=== PATIENT | male | born 1970 | race Caucasian/White ===

== ENCOUNTER 2016-11-07 07:34 | Emergency (ER) | payer MEDICARE ==
[~2016-11-07] VITALS: Ht 172.7 cm; Wt 62.8 kg
[~2016-11-07 07:34] MED LIST: HYDR-3533 PO; LEVO50TA4 PO; LISI-360 PO; WARF2TAB PO
[2016-11-07 07:42] VITALS: BP 134/84; PULSE 100; RESP 18; TEMP 98; O2SAT 99
[2016-11-07] MEDS ORDERED: LEVO50TA4 PO (07:54)
[2016-11-07] MEDS ORDERED: AMLO10TA2 PO (07:54)
[2016-11-07] MEDS ORDERED: LISI10TA3 PO (07:54)
[2016-11-07] MEDS ORDERED: WARF4TAB52 PO (07:54)
[2016-11-07] MEDS ORDERED: SODIUM CHLOR 0.9% 1000 ML INJ 1,000 ML IV SCH (08:12)
[2016-11-07] MEDS ORDERED: MORPHINE SULFATE 4 MG/ML INJ IV PUSH ONE (08:15)
[2016-11-07] MEDS ORDERED: SODIUM CHLORIDE 0.9% FLUSH 5 ML FLUSH IVF PRN (08:15)
[2016-11-07] MEDS ORDERED: ONDANSETRON HCL 4 MG/2 ML VIAL IVP ONE (08:15)
--- NOTE | 2016-11-07 08:25 | PD ---
HPI Chief Complaint: GI Complaint Time Seen by Provider: 08:05 Travel History International Travel<30 days: No Contact w/Intl Traveler<30days: No Traveled to known affect area: No History of Present Illness HPI Patient is a 46-year-old male who presents to emergency room with complaints of left-sided flank pain and left lower abdominal pain. Patient reports that all the symptoms began yesterday around noon, reports that he had been having intermittent left-sided pain and attributed it to muscle strain. Patient reports that he put heating pads on his left side of his abdomen and reports no relief of symptoms. Patient reports that symptoms have been constant this morning, patient concerned that he may have a kidney stone. Patient denies history of kidney stones in the past. Patient denies hematuria, denies dysuria , urinary urgency or frequency. Patient admits to feeling nausea but denies vomiting, patient denies constipation or diarrhea. Patient with no fevers or chills. PFSH Past Medical History Hx Anticoagulant Therapy: Yes (coumadin) Cardiovascular Problems: Yes (htn) Cerebrovascular Accident: Yes Hypertension: Yes Thyroid Disease: Yes Influenza Vaccination: Yes Past Surgical History Surgical History: No Previous Surgery Other Surgery: Yes (orthopedic surgery) Family History Family History: Negative Social History Alcohol Use: No Tobacco Use: No Substance Use: No Allergies-Medications (Allergen,Severity, Reaction): Coded Allergies: No Known Allergies (Unverified , 11/07/16) Reported Meds & Prescriptions Reported Meds & Active Scripts Active Ibuprofen 600 Mg Tab 600 Mg PO Q6H PRN Percocet (Oxycodone-Acetaminophen) 5-325 mg Tab 1 Tab PO Q6H PRN Flomax (Tamsulosin HCl) 0.4 Mg Cap 0.4 Mg PO HS Reported Warfarin 1 Mg Tab 1 Mg PO DAILY Amlodipine (Amlodipine Besylate) 10 Mg Tab 10 Mg PO HS Lisinopril 10 Mg Tab 10 Mg PO DAILY Levothyroxine (Levothyroxine Sodium) 50 Mcg Tab 50 Mcg PO DAILY Review of Systems General / Constitutional: No: Fever Eyes: No: Visual changes HENT: No: Headaches Cardiovascular: No: Chest Pain or Discomfort Respiratory: No: Shortness of Breath Gastrointestinal: Positive: Nausea, Abdominal Pain, No: Vomiting, Diarrhea, Hematemesis, Hematochezia, Constipation Genitourinary: No: Urgency, Frequency, Dysuria, Hematuria Musculoskeletal: No: Pain Skin: No Rash Neurologic: No: Weakness Psychiatric: No: Depression Endocrine: No: Polydipsia Hematologic/Lymphatic: No: Easy Bruising Physical Exam Narrative GENERAL: No acute distress, nontoxic SKIN: Warm and dry. HEAD: Atraumatic. Normocephalic. EYES: Pupils equal and round. No scleral icterus. No injection or drainage. ENT: No nasal bleeding or discharge. Mucous membranes pink and moist. NECK: Trachea midline. No JVD. CARDIOVASCULAR: Regular rate and rhythm. No murmur appreciated. RESPIRATORY: No accessory muscle use. Clear to auscultation. Breath sounds equal bilaterally. GASTROINTESTINAL: Abdomen soft, non-tender, nondistended. Patient with left- sided flank pain, patient does have some redness and irritation to his left lower abdomen - patient reports that he noticed this after he placed heating pad on his abdomen last night. There is no rebound or guarding on abdominal exam. Patient with no peritoneal signs. MUSCULOSKELETAL: No obvious deformities. No clubbing. No cyanosis. No edema. NEUROLOGICAL: Awake and alert. No obvious cranial nerve deficits. Motor grossly within normal limits. Normal speech. PSYCHIATRIC: Appropriate mood and affect; insight and judgment normal. Data Data Last Documented VS Vital Signs Date Time Temp Pulse Resp B/P Pulse Ox O2 Delivery O2 Flow Rate FiO2 11/07/16 09:03 86 18 130/92 97 Room Air 11/07/16 07:42 98.0 Orders Complete Blood Count With Diff (11/07/16 08:12) Comprehensive Metabolic Panel (11/07/16 08:12) Lipase (11/07/16 08:12) Prothrombin Time / Inr (Pt) (11/07/16 08:12) Act Partial Throm Time (Ptt) (11/07/16 08:12) Urinalysis - C+S If Indicated (11/07/16 08:12) Ct Abd/Pel W/O Iv Contrast (11/07/16 08:12) Iv Access Insert/Monitor (11/07/16 08:12) Morphine Inj (Morphine Inj) (11/07/16 08:15) Ondansetron Inj (Zofran Inj) (11/07/16 08:15) Sodium Chlor 0.9% 1000 Ml Inj (Ns 1000 M (11/07/16 08:12) Sodium Chloride 0.9% Flush (Ns Flush) (11/07/16 08:15) Strain Urine PRN (11/07/16 09:59) Labs Laboratory Tests Test 11/07/16 11/07/16 08:25 08:44 White Blood Count 11.7 TH/MM3 Red Blood Count 5.19 MIL/MM3 Hemoglobin 14.2 GM/DL Hematocrit 42.6 % Mean Corpuscular Volume 82.1 FL Mean Corpuscular Hemoglobin 27.3 PG Mean Corpuscular Hemoglobin 33.3 % Concent Red Cell Distribution Width 11.8 % Platelet Count 274 TH/MM3 Mean Platelet Volume 6.8 FL Neutrophils (%) (Auto) 87.8 % Lymphocytes (%) (Auto) 5.1 % Monocytes (%) (Auto) 6.2 % Eosinophils (%) (Auto) 0.2 % Basophils (%) (Auto) 0.7 % Neutrophils # (Auto) 10.3 TH/MM3 Lymphocytes # (Auto) 0.6 TH/MM3 Monocytes # (Auto) 0.7 TH/MM3 Eosinophils # (Auto) 0.0 TH/MM3 Basophils # (Auto) 0.1 TH/MM3 CBC Comment DIFF FINAL Differential Comment Prothrombin Time 19.4 SEC Prothromb Time International 1.7 RATIO Ratio Activated Partial 40.9 SEC Thromboplast Time Sodium Level 133 MEQ/L Potassium Level 3.7 MEQ/L Chloride Level 96 MEQ/L Carbon Dioxide Level 25.0 MEQ/L Anion Gap 12 MEQ/L Blood Urea Nitrogen 11 MG/DL Creatinine 1.20 MG/DL Estimat Glomerular Filtration 65 ML/MIN Rate Random Glucose 145 MG/DL Calcium Level 8.6 MG/DL Total Bilirubin 0.7 MG/DL Aspartate Amino Transf 51 U/L (AST/SGOT) Alanine Aminotransferase 129 U/L (ALT/SGPT) Alkaline Phosphatase 147 U/L Total Protein 7.7 GM/DL Albumin 3.6 GM/DL Lipase 117 U/L Urine Collection Type CLEAN CATCH Urine Color YELLOW Urine Turbidity CLEAR Urine pH 6.0 Urine Specific [place] 1.005 Urine Protein NEG mg/dL Urine Glucose (UA) NEG mg/dL Urine Ketones NEG mg/dL Urine Occult Blood LARGE Urine Nitrite NEG Urine Bilirubin NEG Urine Leukocyte Esterase NEG Urine RBC 15-19 /hpf Microscopic Urinalysis Comment CULT NOT INDICATED MDM Medical Decision Making Medical Screen Exam Complete: Yes Emergency Medical Condition: Yes Interpretation(s) Vital Signs Date Time Temp Pulse Resp B/P Pulse Ox O2 Delivery O2 Flow Rate FiO2 11/07/16 07:42 98.0 100 18 134/84 99 Differential Diagnosis Nephrolithiasis, UTI, pyelonephritis, colitis, muscle strain Narrative Course Patient is a 46-year-old male who presents to emergency room with complaints of left sided flank pain/abdominal pain which began around noon yesterday. Patient reports that symptoms have been intermittent yesterday but have been constant this morning. Patient concerned that he may have a kidney stone. Patient nontoxic on evaluation, patient does have left sided flank pain on evaluation. CBC, BMP, coags, UA and CT abdomen pelvis without IV contrast obtained for further evaluation symptoms. Will treat patient's pain with morphine, will also machine deburrer IV fluids at this time. CBC & BMP Diagram 11/07/16 08:25 Last Impressions Abdomen/Pelvis CT 11/07/16 0812 Signed Impressions: Service Date/Time: Saturday, November 07, 2016 08:48 - CONCLUSION: 3 mm distal left ureteral calculus with secondary hydronephrosis and hydroureter and Mickey Harris MD All labs and all studies reviewed with patient in detail. Patient with a 3 mm distal left renal calculus with hydronephrosis and hydroureter. Patient was given a urine strainer, instructed to strain his urine and catch kidney stone and bring this to his urology office appointment. Discussed with patient that he should make an appointment with urologist after he leaves emergency room today. Signs and symptoms of when to return to the emergency room reviewed with patient. Understands that if symptoms progress or worsen, he will need to return to emergency room immediately. Patient also understands that he should not drive while taking narcotic pain medications. Diagnosis Primary Impression: Kidney stone on left side Additional Impressions: Hydronephrosis Qualified Code: N13.2 - Hydronephrosis with urinary obstruction due to renal calculus Hydroureter Hyponatremia Transaminitis Hematuria Referrals: Hero Abraham MD Patient Instructions: General Instructions, Narcotic given in the ED Additional Instructions: Please provide patient with a copy of his labs and studies at discharge Please strain your urine, bring your kidney stones your doctor's office for further workup of your stone. Return to ER as needed Return to ER if symptoms progress or worsen Please do not drive while taking narcotic pain medications. Please call urologist as soon as possible for earliest follow-up Please call your primary care doctor for follow-up Med/Other Pt SpecificInfo: Prescription(s) given Scripts Ibuprofen 600 Mg [id number] Mg PO Q6H PRN (Pain/Inflammation) #40 TAB Ref 0 Prov:Aidee Garcia DO 11/07/16 Oxycodone-Acetaminophen (Percocet)5-325 mg Tab1 Tab PO Q6H PRN (PAIN) #15 TAB Ref 0 Prov:Aidee Garcia DO 11/07/16 Tamsulosin (Flomax)0.4 Mg Cap0.4 Mg PO HS #12 CAP Ref 0 Prov:Aidee Garcia DO 11/07/16 Disposition: 01 DISCHARGE HOME Condition: Stable Aidee Garcia DO Nov 07, 2016 08:25
[2016-11-07 08:30] LABS: AUTOMATED NEUTROPHIL # 10.3 TH/MM3 (1.8-7.7); BASOPHIL # 0.1 TH/MM3 (0-0.2); BASOPHIL % 0.7 % (0.0-2.0); EOSINOPHIL % 0.2 % (0.0-4.0); HEMATOCRIT 42.6 % (39.0-51.0); LYMPH % 5.1 % (9.0-44.0); LYMPHOCYTE # 0.6 TH/MM3 (1.0-4.8); MEAN CELL VOLUME 82.1 FL (80.0-100.0); MEAN CORPUSCULAR HEMOGLOBIN 27.3 PG (27.0-34.0); MEAN CORPUSCULAR HGB CONC 33.3 % (32.0-36.0); MONO % 6.2 % (0.0-8.0); NEUT % 87.8 % (16.0-70.0); PLATELET COUNT 274 TH/MM3 (150-450); RED BLOOD COUNT 5.19 MIL/MM3 (4.50-5.90); RED CELL DISTRIBUTION WIDTH 11.8 % (11.6-17.2); WHITE BLOOD COUNT 11.7 TH/MM3 (4.0-11.0)
[2016-11-07 08:31] LABS: HEMO FLAGS DIFF FINAL
[2016-11-07 08:37] LABS: CHLORIDE 96 MEQ/L (98-107); POTASSIUM 3.7 MEQ/L (3.5-5.1); SODIUM (NA) 133 MEQ/L (136-145)
[2016-11-07 08:42] LABS: ANION GAP 12 MEQ/L (5-15); APTT (PATIENT) 40.9 SEC (24.3-30.1); BLOOD UREA NITROGEN 11 MG/DL (7-18); INTERNATIONAL NORMALIZED RATIO 1.7 RATIO; PROTHROMBIN TIME - PATIENT 19.4 SEC (9.8-11.6)
[2016-11-07 08:44] LABS: ALT (GPT) 129 U/L (12-78); AST (GOT) 51 U/L (15-37); GLOMERULAR FILTRATION RATE 65 ML/MIN (>89)
[2016-11-07 08:46] LABS: TOTAL BILIRUBIN ADULT 0.7 MG/DL (0.2-1.0)
[2016-11-07 08:47] LABS: ALKALINE PHOSPHATASE 147 U/L (45-117)
[2016-11-07 08:50] LABS: BLOOD, URINE LARGE (NEG); GLUCOSE,URINE NEG (NEG); KETONE, URINE NEG (NEG); NITRITE,URINE NEG (NEG)
[2016-11-07 08:54] LABS: COMMENT (UR) CULT NOT INDICATED; CULTURE IF INDICATED CULT NOT INDICATED; METHOD OF COLLECTION CLEAN CATCH; RBC, URINE 15-19 /hpf (0-3); URINE COLOR YELLOW (YELLW/STRAW)
[2016-11-07 09:03] VITALS: BP 130/92; PULSE 86; RESP 18; O2SAT 97
--- NOTE | 2016-11-07 09:12 | RADHPO ---
EXAM DATE/TIME: 11/07/2016 08:48 [facility] COMPARISON: No previous studies available for comparison. INDICATIONS : Left lower quadrant pain. Evaluate for renal stone. ORAL CONTRAST: No oral contrast ingested. RADIATION DOSE: 6.94 CTDIvol (mGy) MEDICAL HISTORY : Cerebrovascular disease. Hypertension. SURGICAL HISTORY : Orthopedic surgery. ENCOUNTER: Initial ACUITY: 1 day PAIN SCALE: 3/10 LOCATION: Left lower quadrant TECHNIQUE: Volumetric scanning of the abdomen and pelvis was performed. Using automated exposure control and ad justment of the mA and/or kV according to patient size, radiation dose was kept as low as reasonably achievable to obtain optimal diagnostic quality images. FINDINGS: LOWER LUNGS: The visualized lower lungs are clear. LIVER: Homogeneous density without lesion. There is no dilation of the biliary tree. No calcified gallston es. Gallbladder seems little structure without wall thickening SPLEEN: Normal size without lesion. PANCREAS: Within normal limits. KIDNEYS: Normal in size and shape. There is no mass. There is a 3 mm distal left ureteral calculus at the UV junction with secondary hydronephrosis and hydroureter. ADRENAL GLANDS: Within normal limits. VASCULAR: There is no aortic aneurysm. BOWEL/MESENTERY: The stomach, small bowel, and colon demonstrate no acute abnormality. There is no free intraperitone al air or fluid. ABDOMINAL WALL: Within normal limits. RETROPERITONEUM: There is no lymphadenopathy. BLADDER: No wall thickening or mass. REPRODUCTIVE: Within normal limits. INGUINAL: There is no lymphadenopathy or hernia. MUSCULOSKELETAL: Within normal limits for patient age. CONCLUSION: 3 mm distal left ureteral calculus with secondary hydronephrosis and hydroureter and Mickey Harris MD on November 07, 2016 at 9:08 Board Certified Radiologist. This report was verified electronically.
[2016-11-07] MEDS ORDERED: TAMS5CAP PO (09:59)
[2016-11-07] MEDS ORDERED: IBUP-232 PO (09:59)
[2016-11-07] MEDS ORDERED: PERC5TAB12 PO (09:59)
[2016-11-07 10:45] VITALS: BP 138/78
== END 2016-11-07 10:46 | disposition home or self-care (01) ==
LOC: PHED 07:34
DX: N20.0 Calculus of kidney (principal); N13.30 Unspecified hydronephrosis; N13.2 Hydronephrosis with renal and ureteral calculous obstruction; R74.0 Nonspecific elevation of levels of transaminase and lactic acid dehydrogenase [LDH]; R31.9 Hematuria, unspecified; E87.1 Hypo-osmolality and hyponatremia; Z79.01 Long term (current) use of anticoagulants; I10 Essential (primary) hypertension; Z86.73 Personal history of transient ischemic attack (TIA), and cerebral infarction without residual deficits
CPT/HCPCS: 74176; 80053; 81001; 83690; 85025; 85610; 85730; 96361; 96374; 96375; 99284; J2270; J2405; J7030